=== PATIENT | female | born 2000 | race Caucasian/White ===

== ENCOUNTER 2022-03-31 18:39 | Emergency (ER) | payer BC ==
[2022-03-31] MEDS ORDERED: KETOROLAC 15 MG/ML 1 ML VIAL IM STA (19:29)
[2022-03-31] MEDS: LIDOCAINE VISCOUS 2% 15 ML CUP MUCOUS MEM ONE ×2 (19:46→21:21)
--- NOTE | 2022-03-31 20:27 | CT ---
EXAMINATION TYPE: CT soft tissue neck wo con CT DLP: 231.3 mGycm, Automated exposure control for dose reduction was used. DATE OF EXAM: 03/31/2022 7:44 PM COMPARISON: None. CLINICAL INDICATION:Female, 21 years old with history of left tonsillar swelling, concern for abscess ; PHH, Left tonsillar swelling, concern for abscess. TECHNIQUE: Standard enhanced CT of the neck. Axial sections with coronal and sagittal reformats were obtained. Contrast used: none Oral contrast used: none. FINDINGS: Brain: Visualized portions are grossly unremarkable. Orbits: Unremarkable Sinuses: Grossly unremarkable. Spaces of the neck: Clyde tonsil enlargement bilaterally. Evaluation limited without contrast for a peritonsillar abscess there is a low-density area in the region of the tonsil unclear if it's artif act. There is a small 9 mm area which is incompletely evaluated without contrast. Musculoskeletal: No acute osseous pathology. Lymph nodes: Multiple nonenlarged lymph nodes are seen along both anterior chains of the neck. Vascular structures: Visualized major arteries are patent without evidence of aneurysm. Thoracic Inlet/airway: Airway is patent. The lung apices are clear. Soft tissues/Thyroid: Thyroid and remainder of the soft tissues are unremarkable. Other: none. IMPRESSION Limited evaluation for abscess without IV contrast. Consider repeat exam with IV contrast. A low atte nuating region in the left palatine tonsil measures up to 9 mm and may represent abscess however is i ncompletely evaluated without IV contrast.
--- NOTE | 2022-03-31 21:22 | ED ---
ENT HPI - General Chief complaint: ENT Stated complaint: Swollen Tonsils Time Seen by Provider: 03/31/22 19:13 Source: patient Mode of arrival: ambulatory - History of Present Illness Initial comments: Patient is a 21-year-old female presents to the emergency department with a chief complaint of swollen tonsil. Patient reports throat pain and swelling of her left tonsil since Sunday. She denies drooling, lockjaw, muffled voice, fever, other upper respiratory symptoms. Patient states she was placed on Augmentin and steroids on Sunday however swelling has not improved. No shortness of breath or airway issues. - Related Data Previous Rx's Medication Instructions Recorded Amoxic-Pot Clav 875-125Mg 1 tab PO BID 7 Days #14 tab 03/31/22 [Augmentin 875-125] Ibuprofen [Motrin] 800 mg PO Q8HR PRN #30 tab 03/31/22 Lidocaine Viscous 2% [Xylocaine 75 ml MUCOUS MEM BID PRN #150 ml 03/31/22 Viscous] Allergies Allergy/AdvReac Type Severity Reaction Status Date / Time No Known Allergies Allergy Verified 03/31/22 19:02 Review of Systems ROS Statement: Those systems with pertinent positive or pertinent negative responses have been documented in the HPI. ROS Other: All systems not noted in ROS Statement are negative. Past Medical History Past Medical History: No Reported History History of Any Multi-Drug Resistant Organisms: None Reported Past Surgical History: No Surgical Hx Reported Past Psychological History: No Psychological Hx Reported Smoking Status: Never smoker Past Alcohol Use History: Occasional Past Drug Use History: None Reported General Exam General appearance: alert, in no apparent distress Head exam: Present: atraumatic, normocephalic, normal inspection Eye exam: Present: normal appearance, PERRL, EOMI. Absent: scleral icterus, conjunctival injection, periorbital swelling ENT exam: Absent: normal oropharynx (Mildly swollen left tonsil with minimal uvular deviation. moderate erythema of left tonsil without exudate) Neck exam: Present: normal inspection, lymphadenopathy (left anterior cervical ). Absent: tenderness, meningismus Respiratory exam: Present: normal lung sounds bilaterally. Absent: respiratory distress, wheezes, rales, rhonchi, stridor Cardiovascular Exam: Present: regular rate, normal rhythm, normal heart sounds. Absent: systolic murmur, diastolic murmur, rubs, gallop, clicks Neurological exam: Present: alert, oriented X3, CN II-XII intact Psychiatric exam: Present: normal affect, normal mood Skin exam: Present: warm, dry, intact, normal color. Absent: rash Course Vital Signs 03/31/22 03/31/22 18:59 21:31 Temperature 97.4 F L 98.2 F Pulse Rate 66 84 Respiratory 16 18 Rate Blood Pressure 134/76 109/66 O2 Sat by Pulse 98 99 Oximetry Medical Decision Making - Medical Decision Making This is a 21-year-old presenting with left tonsil swelling, odynophagia. No airway involvement. Early left peritonsillar abscess is suspected on physical exam. Strep throat is detected. CT of the neck soft tissues was obtained and interpreted by the which shows probable abscess in the left tonsil. Needle aspiration was performed however purulent output could not be obtained, likely related to early abscess. Patient to continue Augmentin prescription and I will also send her an extended week. Patient to follow up with ENT specialist. Return parameters discussed. Dr. Rashid is my attending. - Lab Data Lab Results 03/31/22 03/31/22 03/31/22 Range/Units 19:27 19:27 19:34 Heterophile Antibody Negative (Negative) Influenza Type A (PCR) Not Detected (Not Detectd) Influenza Type B (PCR) Not Detected (Not Detectd) RSV (PCR) Not Detected (Not Detectd) SARS-CoV-2 (PCR) Not Detected (Not Detectd) Group A Strep (PCR) DETECTED A (Not Detectd) Disposition Clinical Impression: Peritonsillar abscess Disposition: HOME SELF-CARE Condition: Fair Instructions (If sedation given, give patient instructions): Peritonsillar Abscess (ED) Additional Instructions: Take medication as directed. Continue previously prescribed script of Augmentin and then start today's prescription afterwards. Follow-up with ENT specialist Sunday morning. Return to the emergency department experience new, concerning, or worsening symptoms. Prescriptions: Amoxic-Pot Clav 875-125Mg [Augmentin 875-125] 1 tab PO BID 7 Days #14 tab Ibuprofen [Motrin] 800 mg PO Q8HR PRN #30 tab PRN Reason: Pain Lidocaine Viscous 2% [Xylocaine Viscous] 75 ml MUCOUS MEM BID PRN #150 ml PRN Reason: Pain Is patient prescribed a controlled substance at d/c from ED?: No Referrals: Kinter,Denise L, PAC [Primary Care Provider] - 1-2 days Kenyon Singh MD [STAFF PHYSICIAN] - 1-2 days Time of Disposition: 21:21
[2022-03-31 21:32] VITALS: BP 109/66; PULSE 84; RESP 18; TEMP 98.2
== END 2022-03-31 21:32 | disposition home or self-care (01) ==
LOC: EC 18:39
DX: J36 Peritonsillar abscess (principal); Z20.822 Contact with and (suspected) exposure to COVID-19
CPT/HCPCS: 36415; 87651; 86308; 87636; 70490; 99283; 96372; J1885